=== PATIENT | male | born 1980 | race African-American/Black ===

== ENCOUNTER 2018-04-28 19:31 | Emergency (ER) | payer MEDICAID ==
[~2018-04-28] VITALS: Ht 182.9 cm; Wt 79.4 kg
[~2018-04-28 19:31] MED LIST: NKM
[2018-04-28] MEDS ORDERED: LORazepam Inj 2mg/ml 1ml IV ONE (19:45)
[2018-04-28 20:08] VITALS: BP 124/84
--- NOTE | 2018-04-28 20:27 | Emergency Room Report ---
History of Present Illness General Chief Complaint: Chest Pain Source: Patient Present Illness HPI 37-year-old male presented after increased chest pain. Patient reports having prior history of alcohol abuse. He reports last drinking this morning. He states he becoming increasingly shaky. Patient reports having prior history of alcoholism.He states he drinks daily.Patient denies any exertional symptoms. He reports having some chronic leg pain. He denies any recent cough Allergies: Coded Allergies: No Known Allergies (Unverified , 04/28/18) Patient History Past Medical History: see triage record Reviewed Nursing Documentation: PMH: Agreed; PSxH: Agreed Nursing Documentation-PMH Past Medical History: No Stated History Review of Systems All Other Systems: negative except mentioned in HPI Physical Exam Vital Signs Date Time Temp Pulse Resp B/P (MAP) Pulse Ox O2 Delivery O2 Flow Rate FiO2 04/28/18 19:27 98.6 98 14 136/94 98 Room Air Sp02 EP Interpretation: reviewed, normal General Appearance: normal inspection, well appearing, no apparent distress, alert, GCS 15, Chronically Ill Head: atraumatic ENT: normal ENT inspection, hearing grossly normal, normal voice Neck: normal inspection, full range of motion, supple, no bony tend Respiratory: normal inspection, lungs clear, normal breath sounds, no respiratory distress, no retraction, no wheezing Cardiovascular #1: regular rate, rhythm, no edema Gastrointestinal: normal inspection, normal bowel sounds, non tender, soft, no guarding, no hernia Genitourinary: no CVA tenderness Musculoskeletal: normal inspection, back normal, normal range of motion Neurologic: normal inspection, alert, oriented x3, responsive, rehab manager III-XII nml as tested, speech normal, other - tremulousness Psychiatric: normal inspection, judgement/insight normal, mood/affect normal Skin: normal inspection, normal color, no rash Medical Decision Making Diagnostic Impression: Primary Impression: Alcohol withdrawal ER Course Patient presented for chest discomfort. Differential diagnosis include was not limited to gastritis, alcohol withdrawal, pancreatitis among others. Because of complexity of patient's case laboratory testing and imaging studies were ordered. EKG interpreted by me showed normal sinus rhythm with a rate of [address] or T wave changes. Patient is given IV Ativan as well as IV magnesium. Patient was given IV fluids. Patient was noted to have improvement of symptoms. Laboratory testing was notable for negative blood alcohol level. Patient was given subsequent dose of oral Ativan.Patient advised to abstain from alcohol drinking. He was given prescription for further doses of Ativan. He was advised to follow-up with outpatient mental health.Patient appears stable for outpatient management. Labs Test 04/28/18 19:40 White Blood Count 4.5 K/UL (4.8-10.8) Red Blood Count 4.09 M/UL (4.70-6.10) Hemoglobin 12.7 G/DL (14.2-18.0) Hematocrit 37.3 % (42.0-52.0) Mean Corpuscular Volume 91 FL (80-99) Mean Corpuscular Hemoglobin 31.1 PG (27.0-31.0) Mean Corpuscular Hemoglobin Concent 34.1 G/DL (32.0-36.0) Red Cell Distribution Width 12.9 % (11.6-14.8) Platelet Count 117 K/UL (150-450) Mean Platelet Volume 7.6 FL (6.5-10.1) Neutrophils (%) (Auto) 76.7 % (45.0-75.0) Lymphocytes (%) (Auto) 10.9 % (20.0-45.0) Monocytes (%) (Auto) 9.7 % (1.0-10.0) Eosinophils (%) (Auto) 0.1 % (0.0-3.0) Basophils (%) (Auto) 2.6 % (0.0-2.0) Sodium Level 134 MMOL/L (136-145) Potassium Level 4.7 MMOL/L (3.5-5.1) Chloride Level 97 MMOL/L (98-107) Carbon Dioxide Level 23 MMOL/L (21-32) Anion Gap 14 mmol/L (5-15) Blood Urea Nitrogen 7 mg/dL (7-18) Creatinine 0.6 MG/DL (0.55-1.30) Estimat Glomerular Filtration Rate > 60 mL/min (>60) Glucose Level 108 MG/DL (74-106) Calcium Level 9.3 MG/DL (8.5-10.1) Total Bilirubin 0.9 MG/DL (0.2-1.0) Aspartate Amino Transf (AST/SGOT) 140 U/L (15-37) Alanine Aminotransferase (ALT/SGPT) 66 U/L (12-78) Alkaline Phosphatase 71 U/L (46-116) Troponin I 0.000 ng/mL (0.000-0.056) Total Protein 8.3 G/DL (6.4-8.2) Albumin 4.1 G/DL (3.4-5.0) Globulin 4.2 g/dL Albumin/Globulin Ratio 1.0 (1.0-2.7) Serum Alcohol < 3 mg/dL EKG Diagnostic Results Rate: normal Last Vital Signs Date Time Temp Pulse Resp B/P (MAP) Pulse Ox O2 Delivery O2 Flow Rate FiO2 04/28/18 20:08 98 14 Room Air 04/28/18 20:08 98.6 124/84 98 Status: improved Disposition: HOME, SELF-CARE Condition: Stable Scripts Lorazepam* (ATIVAN*) 1 Mg Tablet 1 MG ORAL THREE TIMES A DAY, #15 TAB Prov: Subhash Nye MD 04/28/18 Pantoprazole* (PROTONIX*) 40 Mg Tablet.dr 40 MG ORAL DAILY, #20 TAB Prov: Subhash Nye MD 04/28/18 Subhash Nye MD Apr 28, 2018 20:27
[2018-04-28 20:30] LABS: BASOPHILS % (AUTO) 2.6 % (0.0-2.0); EOSINOPHILS % (AUTO) 0.1 % (0.0-3.0); HEMATOCRIT 37.3 % (42.0-52.0); HEMOGLOBIN 12.7 G/DL (14.2-18.0); LYMPHOCYTES % (AUTO) 10.9 % (20.0-45.0); MEAN CORPUSCULAR VOLUME 91 FL (80-99); MONOCYTES % (AUTO) 9.7 % (1.0-10.0); NEUTROPHILS % (AUTO) 76.7 % (45.0-75.0); PLATELET COUNT 117 K/UL (150-450); RED BLOOD COUNT 4.09 M/UL (4.70-6.10); RED CELL DISTRIBUTION WIDTH 12.9 % (11.6-14.8); WHITE BLOOD COUNT 4.5 K/UL (4.8-10.8)
[2018-04-28] MEDS ORDERED: D5 1/2NS w/KCl 20mEq 1,000 ML IV SCH (20:30)
[2018-04-28 20:31] LABS: ANION GAP 14 mmol/L (5-15); BLOOD UREA NITROGEN 7 mg/dL (7-18); CALCIUM 9.3 MG/DL (8.5-10.1); CARBON DIOXIDE 23 MMOL/L (21-32); CHLORIDE 97 MMOL/L (98-107); CREATININE 0.6 MG/DL (0.55-1.30); POTASSIUM 4.7 MMOL/L (3.5-5.1); SODIUM 134 MMOL/L (136-145)
[2018-04-28 20:35] LABS: ALANINE AMINOTRANSFERASE 66 U/L (12-78); ALBUMIN 4.1 G/DL (3.4-5.0); ALKALINE PHOSPHATASE 71 U/L (46-116); ASPARTATE AMINO TRANSFERASE 140 U/L (15-37); BILIRUBIN,TOTAL 0.9 MG/DL (0.2-1.0)
[2018-04-28] MEDS ORDERED: PROTONIX40 MG ORAL (21:41)
[2018-04-28 22:05] VITALS: BP 150/90
[2018-04-28] MEDS ORDERED: ATIVAN1 MG ORAL (22:08)
[2018-04-28] MEDS ORDERED: LORazepam 1mg tab ORAL ONE (22:15)
[2018-04-28 22:22] VITALS: BP 150/90
--- NOTE | 2018-04-29 15:17 | Cardiology Report ---
APPROVED REPORT EKG Measurement Heart [id number] Sinus rhythm with sinus arrhythmia with short OH Nonspecific ST abnormality Abnormal ECG
== END 2018-04-28 23:22 | disposition home or self-care (01) ==
LOC: EDBD 19:31 → EMR 19:51
DX: F10.239 Alcohol dependence with withdrawal, unspecified (principal); R07.89 Other chest pain
CPT/HCPCS: 36415; 80053; 80329; 84484; 85025; 93005; 96361; 96365; 96375; 99284